=== PATIENT | female | born 1950 | race Caucasian/White ===

== ENCOUNTER 2021-11-11 18:57 | Emergency (ER) | payer MEDICARE, SELFPAY ==
--- NOTE | 2021-11-11 19:02 | ED.GENADULT ---
HPI - General Adult General Chief complaint: Upper Respiratory Infection Stated complaint: panic attack Time Seen by Provider: 11/11/21 19:01 Source: patient Mode of arrival: ambulatory Limitations: no limitations History of Present Illness HPI narrative: 71-year-old female patient presents to the [facility] with complaints of hoarse voice. Patient states that she was diagnosed with COVID on October 29 and has completed her quarantine time. But she is concerned because she still has some drainage in the back of her throat and some nasal congestion. Denies any chest pain, shortness of breath. Denies any fevers. Patient states she does have history of anxiety and did take an Ativan before she came today. Colleague states that she has been taking daily antihistamine as well as a nasal spray. The patient showed the nasal spray to the provider and it was Afrin she has been using many years . Related Data Home Medications Medication Instructions Recorded Confirmed escitalopram oxalate 20 mg PO DAILY 11/11/21 11/11/21 fluticasone furoate-vilanterol 100 inh INHALATION BID 11/11/21 11/11/21 [Breo Ellipta] gabapentin 300 mg PO DAILY 11/11/21 11/11/21 levetiracetam 250 mg PO DAILY 11/11/21 11/11/21 levothyroxine 112 mcg PO DAILY 11/11/21 11/11/21 lorazepam 0.5 mg PO DAILY 11/11/21 11/11/21 ropinirole 0.5 mg PO DAILY 11/11/21 11/11/21 Allergies Allergy/AdvReac Type Severity Reaction Status Date / Time No Known Allergies Allergy Verified 11/11/21 19:17 Review of Systems Review of Systems: CONSTITUTIONAL: Denies fever, chills, or sweats. EYES: Denies visual changes, redness, or discharge. ENT: Positive rhinorrhea, congestion, denies sore throat, or otalgia. CARDIOVASCULAR: Denies chest pain, palpitations, or edema. RESPIRATORY: Positive mild intermittent cough or dyspnea. GASTROINTESTINAL: Denies abdominal pain, nausea, vomiting, or diarrhea. GENITOURINARY: Denies dysuria or hematuria. SKIN: Denies rash or itching. MUSCULOSKELETAL: Denies back pain, joint pain, or myalgia. NEUROLOGIC: Denies headache, numbness, or weakness. PSYCHIATRIC: Denies anxiety or depression. [facility] Past Medical History Medical History (Updated 11/11/21 @ 19:47 by CAMREN Arguelles) Anxiety COVID-19 virus infection October 2021 Comments At the time of my signature I agree with nursing past medical history, surgical, social, and family history. There is no relevant family history pertinent to the presenting complaint. Exam Narrative: GENERAL: Well-appearing, well-nourished, and in no acute distress. HEAD: Normocephalic, atraumatic. EYES: PERRLA and EOMI. ENT: Nares with erythema and edema noted bilaterally, no rhinorrhea or epistaxis. Mucous membranes moist. Posterior pharynx no erythema, tonsillar joint, exudates or lesions present. NECK: Supple. No lymphadenopathy CHEST: Clear to auscultation. No respiratory distress. HEART: Regular rate and rhythm. No murmur heard. Normal peripheral pulses. ABDOMEN: Soft, nontender, nondistended, normal active bowel sounds. EXTREMITIES: Normal range of motion. No edema. SKIN: Warm, dry, no rash. NEURO: No focal deficits. Alert and oriented x3. Course Course Level of Care: Express Care Visit Vital Signs Vital signs: Vital Signs Temperature 36.8 C 11/11/21 19:08 Pulse Rate 97 11/11/21 19:08 Respiratory Rate 16 11/11/21 19:08 Blood Pressure 133/73 11/11/21 19:08 Pulse Oximetry 99 11/11/21 19:08 Temperature 36.8 C 11/11/21 19:08 Pulse Rate 97 11/11/21 19:08 Respiratory Rate 16 11/11/21 19:08 Blood Pressure 133/73 11/11/21 19:08 Pulse Oximetry 99 11/11/21 19:08 Vital signs reviewed Medical Decision Making Differential Diagnosis Differential Diagnosis: Differential diagnosis: Allergic rhinitis, chronic sinusitis, tonsillitis, acute sinusitis, infectious mononucleosis, seasonal influenza, pertussis, diphtheria, meningococcal disease, viral syndrome, viral bronchitis, R
[2021-11-11 19:08] VITALS: BP 133/73; PULSE 97; RESP 16; TEMP 36.8; O2SAT 99
== END 2021-11-11 19:49 | disposition home or self-care (01) ==
PROVIDERS: Emergency Provider Nurse Practitioner Family; PCP Family Medicine
DX: R09.81 Nasal congestion (principal); U09.9 Post COVID-19 condition, unspecified; F41.9 Anxiety disorder, unspecified
CPT/HCPCS: 99211; G0463